=== PATIENT | male | born 1950 | race Caucasian/White ===

== ENCOUNTER 2018-05-08 11:59 | Inpatient (IN) | payer MEDICARE ==
[2018-05-08 12:52] LABS: ADD MAN DIFF? NO
[2018-05-08 12:56] LABS: BASOPHILS % 0.6 % (0.0-2.0); EOSINOPHILS # 0.1 10^3/ul (0.0-0.5); EOSINOPHILS % 1.2 % (0.0-7.0); HEMATOCRIT 46.4 % (42.0-52.0); HEMOGLOBIN 14.8 g/dl (14.0-18.0); LYMPHOCYTES # 2.3 10^3/ul (0.8-2.9); LYMPHOCYTES % 34.1 % (15.0-51.0); MEAN CORPUSCULAR HEMOGLOBIN 29.2 pg (29.0-33.0); MEAN CORPUSCULAR HGB CONC 31.9 g/dl (32.0-37.0); MEAN CORPUSCULAR VOLUME 91.5 fl (82.0-101.0); MEAN PLATELET VOLUME 10.5 fl (7.4-10.4); MONOCYTE # 0.7 10^3/ul (0.3-0.9); MONOCYTES % 11.1 % (0.0-11.0); NEUTROPHIL # 3.5 10^3/ul (1.6-7.5); NEUTROPHILS % 52.8 % (39.0-77.0); PLATELET COUNT 191 10^3/UL (140-415); RED BLOOD COUNT 5.07 10^6/ul (4.70-6.10); RED CELL DISTRIBUTION WIDTH 13.2 % (11.5-14.5)
[2018-05-08 12:56] LABS: WHITE BLOOD COUNT 6.6 10^3/ul (4.8-10.8)
[2018-05-08] MEDS: NITROGLYCERIN (SL) 0.4 MG TAB SL ×2 (13:03→13:30)
[2018-05-08] MEDS: LABETALOL HCL 20MG INJ IV ×2 (13:03→14:58)
[2018-05-08] MEDS: NITROGLYCERIN 2% 1 GM OINT PKT TD (13:03)
[2018-05-08] MEDS: ASPIRIN 81 MG TAB PO (13:03)
[2018-05-08] MEDS: morphine 4 MG/ML VIAL IV (13:04)
[2018-05-08] MEDS: ONDANSETRON 4 MG INJ IV (13:04)
[2018-05-08 13:13] LABS: ANION GAP 11 (5-13); BLOOD UREA NITROGEN 34 mg/dl (7-20); CALCIUM 8.8 mg/dl (8.4-10.2); CARBON DIOXIDE 24 mmol/L (21-31); CHLORIDE 109 mmol/L (97-110); CREATININE 2.81 mg/dl (0.61-1.24); Estimated GFR 23 mL/min (>60); GLUCOSE 108 mg/dl (70-220); SODIUM 144 mmol/L (135-144)
[2018-05-08 13:24] LABS: TROPONIN-I 0.036 ng/ml (0.000-0.120)
[2018-05-08] MEDS ORDERED: ONDANSETRON 4 MG INJ IV ×2 (16:00→16:30)
[2018-05-08] MEDS ORDERED: ACETAMINOPHEN 325 MG TAB PO ×2 (16:00→16:30)
[2018-05-08] MEDS: niCARdipine-NS 0.1MG/ML DRIP 200 ML IV (16:06)
[2018-05-08] MEDS ORDERED: NITROGLYCERIN (SL) 0.4 MG TAB SL (16:30)
[2018-05-08] MEDS ORDERED: NACL 0.9% 3 ML SYG IV (16:30)
[2018-05-08] MEDS ORDERED: HYDROCODONE/APAP (5/325) TAB PO (16:30)
[2018-05-08] MEDS ORDERED: morphine 2 MG INJ IV (16:30)
[2018-05-08] MEDS: ATORVASTATIN 80 MG TAB PO (20:21)
[2018-05-08] MEDS: NIFEdipine (XL) 30 MG TAB PO (20:22)
[2018-05-08] MEDS: TAMSULOSIN (SR) 0.4 MG CAP PO (20:22)
[2018-05-08] MEDS: hydrALAzine 20 MG INJ IV ×2 (20:22→22:10)
[2018-05-08 20:45] LABS: CREATINE KINASE 124 IU/L (23-200)
[2018-05-08 20:55] LABS: CK INDEX 1.1; CK-MB 1.39 ng/ml (0.0-2.4); TROPONIN-I 0.043 ng/ml (0.000-0.120)
[2018-05-08] MEDS: SOD CHLORIDE 0.9% 1,000 ML IV (21:32)
[2018-05-08 21:42] LABS: ADD UMIC YES; UR ASCORBIC ACID NEGATIVE (NEGATIVE); UR BILIRUBIN (Dip) NEGATIVE (NEGATIVE); UR BLOOD (Dip) NEGATIVE (NEGATIVE); UR CLARITY CLEAR (CLEAR); UR COLOR YELLOW (YELLOW); UR GLUCOSE (Dip) NEGATIVE (NEGATIVE); UR KETONES (Dip) NEGATIVE (NEGATIVE); UR LEUKOCYTE ESTERASE (Dip) NEGATIVE Leu/ul (NEGATIVE); UR NITRITE (Dip) NEGATIVE (NEGATIVE); UR RBC 5 /HPF (0-5); UR SPECIFIC GRAVITY (Dip) 1.017 (1.003-1.030); UR TOTAL PROTEIN (Dip) 2+ mg/dl (NEGATIVE); UR UROBILINOGEN (Dip) NEGATIVE (NEGATIVE); UR WBC 1 /HPF (0-5)
[2018-05-08] MEDS: carBAMAZepine CHEW 100 MG CHEW PO (22:00)
[2018-05-08] MEDS: AMLODIPINE 10 MG TAB PO (22:10)
[2018-05-08 22:13] LABS: SODIUM,URINE RANDOM 86 mmol/L (30-90)
[2018-05-08 22:13] LABS: CREATININE,URINE RANDOM 131.76 mg/dl (20-370)
[2018-05-08 22:16] LABS: AMPHETAMINE/METHAMPHETAMINE Negative (NEGATIVE); BARBITURATES Negative (NEGATIVE); BENZODIAZEPINES Negative (NEGATIVE); CANNABINOIDS Positive (NEGATIVE); COCAINE Negative (NEGATIVE); OPIATES Negative (NEGATIVE)
[2018-05-09 01:35] LABS: CREATINE KINASE 110 IU/L (23-200)
[2018-05-09 01:48] LABS: CK-MB 1.13 ng/ml (0.0-2.4); TROPONIN-I 0.074 ng/ml (0.000-0.120)
[2018-05-09 06:28] LABS: ADD MAN DIFF? NO
[2018-05-09 06:32] LABS: WHITE BLOOD COUNT 8.4 10^3/ul (4.8-10.8)
[2018-05-09 06:32] LABS: BASOPHILS % 0.5 % (0.0-2.0); EOSINOPHILS % 0.2 % (0.0-7.0); HEMOGLOBIN 13.8 g/dl (14.0-18.0); LYMPHOCYTES # 1.6 10^3/ul (0.8-2.9); LYMPHOCYTES % 18.7 % (15.0-51.0); MEAN CORPUSCULAR HEMOGLOBIN 29.2 pg (29.0-33.0); MEAN CORPUSCULAR HGB CONC 32.1 g/dl (32.0-37.0); MEAN CORPUSCULAR VOLUME 90.9 fl (82.0-101.0); MEAN PLATELET VOLUME 10.8 fl (7.4-10.4); MONOCYTE # 0.7 10^3/ul (0.3-0.9); MONOCYTES % 8.7 % (0.0-11.0); NEUTROPHILS % 71.4 % (39.0-77.0); PLATELET COUNT 190 10^3/UL (140-415); RED BLOOD COUNT 4.73 10^6/ul (4.70-6.10); RED CELL DISTRIBUTION WIDTH 13.2 % (11.5-14.5)
[2018-05-09 06:51] LABS: ALANINE AMINOTRANSFERASE 18 IU/L (13-69); ALBUMIN/GLOBULIN RATIO 1.21; ALKALINE PHOSPHATASE 151 IU/L (42-121); ANION GAP 10 (5-13); ASPARTATE AMINO TRANSFERASE 19 IU/L (15-46); BILIRUBIN,INDIRECT 0.3 mg/dl (0-1.1); BILIRUBIN,TOTAL 0.3 mg/dl (0.2-1.3); BLOOD UREA NITROGEN 36 mg/dl (7-20); CALCIUM 8.5 mg/dl (8.4-10.2); CARBON DIOXIDE 19 mmol/L (21-31); CHLORIDE 113 mmol/L (97-110); CHOL/HDL RATIO 4.1 RATIO; CHOLESTEROL 174 mg/dl (100-200); CREATININE 2.72 mg/dl (0.61-1.24); Estimated GFR 23 mL/min (>60); GLUCOSE 98 mg/dl (70-220); HDL CHOLESTEROL 42 mg/dl (30-78); LDL CHOLESTEROL,CALCULATED 105 mg/dl; MAGNESIUM 2.3 mg/dl (1.7-2.5); POTASSIUM 4.3 mmol/L (3.5-5.1); SODIUM 142 mmol/L (135-144); TOTAL PROTEIN 7.3 g/dl (6.1-8.1); TRIGLYCERIDES 137 mg/dl (0-149)
[2018-05-09 07:05] LABS: HEMOGLOBIN A1C 5.1 % (0-5.9)
[2018-05-09] MEDS: AMLODIPINE 10 MG TAB PO (08:13)
[2018-05-09] MEDS: NIFEdipine (XL) 30 MG TAB PO ×2 (08:13→20:18)
[2018-05-09] MEDS: ASPIRIN 81 MG TAB PO (08:13)
[2018-05-09] MEDS: hydrALAzine 20 MG INJ IV ×2 (11:12→20:24)
[2018-05-09] MEDS: carBAMAZepine CHEW 100 MG CHEW PO ×3 (14:43→22:14)
[2018-05-09] MEDS: TAMSULOSIN (SR) 0.4 MG CAP PO (20:19)
[2018-05-09] MEDS: ATORVASTATIN 80 MG TAB PO (20:19)
[2018-05-09] MEDS: CARBAMAZEPINE 200 MG TAB PO (21:00)
[2018-05-10] MEDS: hydrALAzine 20 MG INJ IV (04:08)
[2018-05-10 06:36] LABS: ADD MAN DIFF? NO
[2018-05-10 06:39] LABS: BASOPHILS % 0.4 % (0.0-2.0); EOSINOPHILS # 0.1 10^3/ul (0.0-0.5); EOSINOPHILS % 0.7 % (0.0-7.0); HEMATOCRIT 42.3 % (42.0-52.0); HEMOGLOBIN 13.5 g/dl (14.0-18.0); LYMPHOCYTES # 2.4 10^3/ul (0.8-2.9); LYMPHOCYTES % 24.5 % (15.0-51.0); MEAN CORPUSCULAR HEMOGLOBIN 29.2 pg (29.0-33.0); MEAN CORPUSCULAR HGB CONC 31.9 g/dl (32.0-37.0); MEAN CORPUSCULAR VOLUME 91.6 fl (82.0-101.0); MONOCYTE # 1.2 10^3/ul (0.3-0.9); MONOCYTES % 12.2 % (0.0-11.0); NEUTROPHIL # 6.1 10^3/ul (1.6-7.5); NEUTROPHILS % 61.8 % (39.0-77.0); PLATELET COUNT 181 10^3/UL (140-415); RED BLOOD COUNT 4.62 10^6/ul (4.70-6.10); RED CELL DISTRIBUTION WIDTH 13.6 % (11.5-14.5)
[2018-05-10 06:39] LABS: WHITE BLOOD COUNT 9.8 10^3/ul (4.8-10.8)
[2018-05-10 07:23] LABS: ANION GAP 10 (5-13); BLOOD UREA NITROGEN 39 mg/dl (7-20); CALCIUM 8.4 mg/dl (8.4-10.2); CARBON DIOXIDE 17 mmol/L (21-31); CHLORIDE 116 mmol/L (97-110); CREATININE 3.02 mg/dl (0.61-1.24); Estimated GFR 21 mL/min (>60); GLUCOSE 95 mg/dl (70-220); MAGNESIUM 2.2 mg/dl (1.7-2.5); PHOSPHORUS 3.4 mg/dl (2.5-4.9); POTASSIUM 4.3 mmol/L (3.5-5.1); SODIUM 143 mmol/L (135-144)
[2018-05-10] MEDS: ASPIRIN 81 MG TAB PO (07:43)
[2018-05-10] MEDS: NIFEdipine (XL) 30 MG TAB PO (07:44)
[2018-05-10] MEDS: carBAMAZepine CHEW 100 MG CHEW PO ×2 (07:47→21:26)
[2018-05-10] MEDS: NIFEdipine (XL) 60 MG TAB PO (10:30)
[2018-05-10] MEDS: DOXAZOSIN 2 MG TAB PO ×2 (12:18→22:08)
[2018-05-10] MEDS ORDERED: LABETALOL HCL 20MG INJ IV (13:30)
[2018-05-10] MEDS: ATORVASTATIN 80 MG TAB PO (21:26)
[2018-05-10] MEDS: TAMSULOSIN (SR) 0.4 MG CAP PO (21:26)
[2018-05-10] MEDS: CARBAMAZEPINE 200 MG TAB PO (21:26)
[2018-05-11 06:35] LABS: ADD MAN DIFF? NO
[2018-05-11 06:46] LABS: WHITE BLOOD COUNT 7.2 10^3/ul (4.8-10.8)
[2018-05-11 06:46] LABS: BASOPHILS % 0.4 % (0.0-2.0); EOSINOPHILS # 0.1 10^3/ul (0.0-0.5); EOSINOPHILS % 1.9 % (0.0-7.0); HEMOGLOBIN 12.7 g/dl (14.0-18.0); LYMPHOCYTES # 2.2 10^3/ul (0.8-2.9); LYMPHOCYTES % 30.6 % (15.0-51.0); MEAN CORPUSCULAR HEMOGLOBIN 29.1 pg (29.0-33.0); MEAN PLATELET VOLUME 11.2 fl (7.4-10.4); MONOCYTES % 13.2 % (0.0-11.0); NEUTROPHIL # 3.8 10^3/ul (1.6-7.5); NEUTROPHILS % 53.5 % (39.0-77.0); PLATELET COUNT 163 10^3/UL (140-415); RED BLOOD COUNT 4.36 10^6/ul (4.70-6.10); RED CELL DISTRIBUTION WIDTH 13.3 % (11.5-14.5)
[2018-05-11 07:23] LABS: ANION GAP 10 (5-13); BLOOD UREA NITROGEN 43 mg/dl (7-20); CALCIUM 8.1 mg/dl (8.4-10.2); CARBON DIOXIDE 20 mmol/L (21-31); CHLORIDE 114 mmol/L (97-110); CREATININE 2.92 mg/dl (0.61-1.24); Estimated GFR 22 mL/min (>60); GLUCOSE 87 mg/dl (70-220); MAGNESIUM 2.4 mg/dl (1.7-2.5); PHOSPHORUS 3.9 mg/dl (2.5-4.9); POTASSIUM 4.7 mmol/L (3.5-5.1); SODIUM 144 mmol/L (135-144)
[2018-05-11] MEDS: NIFEdipine (XL) 90 MG TAB PO (08:30)
[2018-05-11] MEDS: ASPIRIN 81 MG TAB PO (08:30)
[2018-05-11] MEDS: carBAMAZepine CHEW 100 MG CHEW PO ×2 (08:31→08:33)
[2018-05-11] MEDS: DOXAZOSIN 2 MG TAB PO (08:31)
[2018-05-11 11:50] LABS: HEMATOCRIT 40.6 % (42.0-52.0); HEMOGLOBIN 13.2 g/dl (14.0-18.0)
[2018-05-12 17:01] LABS: CREATININE, RANDOM URINE 128 mg/dL (20-320); MICROALBUMIN/CREATININE RATIO 1094 (<30)
== END 2018-05-11 13:49 | disposition home or self-care (01) | DRG 305 ==
LOC: E/R 11:59 → TEL 15:59
DX: I16.1 Hypertensive emergency (principal); N17.9 Acute kidney failure, unspecified; R00.1 Bradycardia, unspecified; Z91.14 Patient's other noncompliance with medication regimen; N18.9 Chronic kidney disease, unspecified; I12.9 Hypertensive chronic kidney disease with stage 1 through stage 4 chronic kidney disease, or unspecified chronic kidney disease; I16.0 Hypertensive urgency; I25.10 Atherosclerotic heart disease of native coronary artery without angina pectoris; N40.0 Benign prostatic hyperplasia without lower urinary tract symptoms
CPT/HCPCS: 36415; 71045; 74176; 76775; 80048; 80053; 80061; 80307; 81001; 81003; 82043; 82550; 82553; 83036; 83735; 84100; 84155; 84300; 84443; 84484; 85014; 85018; 85025; 93005; 93306; 96374; 99291-25